=== PATIENT | female | born 1970 | race Caucasian/White ===

== ENCOUNTER 2022-10-25 14:09 | Emergency (ER) | payer SELFPAY ==
[2022-10-25] MEDS ORDERED: Sodium Chloride 0.9% 10 ML Syringe FLUSH PRN (14:35)
[2022-10-25 14:55] LABS: ESTIMATED GFR 60 mL/min (>60)
[2022-10-25] MEDS ORDERED: Sodium Chloride 0.9% 1,000 ML IV SCH (15:00)
[2022-10-25] MEDS ORDERED: Potassium Chloride 20 MEQ Tab.ER PO STA (15:06)
[2022-10-25] MEDS ORDERED: Ondansetron 4 MG/2 ML SDV IVPUSH ONE (15:06)
[2022-10-25 15:37] LABS: CORONAVIRUS COVID-19 NAA NEGATIVE (NEGATIVE)
[2022-10-25] MEDS ORDERED: Iopamidol 755 Mg/ML 75 ML Bottle IV ONE (16:20)
== END 2022-10-25 17:20 | disposition home or self-care (01) ==
LOC: FB.ED 14:09
DX: K52.9 Noninfective gastroenteritis and colitis, unspecified (principal); K76.0 Fatty (change of) liver, not elsewhere classified; E04.1 Nontoxic single thyroid nodule; R91.1 Solitary pulmonary nodule; E11.9 Type 2 diabetes mellitus without complications; Z72.0 Tobacco use; Z20.822 Contact with and (suspected) exposure to COVID-19
CPT/HCPCS: 0241U; 36415; 71045; 71275; 80053; 82947; 83605; 83880; 84484; 85025; 85379; 85610; 85730; 87040; 93005; 93010; 96361; 96374; 99283; 99285-25; A9270-GY; J2405; J7030; Q9967

== ENCOUNTER 2023-01-29 22:52 | Emergency (ER) | payer SELFPAY ==
[2023-01-29] MEDS ORDERED: Sodium Chloride 0.9% 1,000 ML IV ONE (23:07)
[2023-01-29] MEDS ORDERED: Ondansetron 4 MG/2 ML SDV IVPUSH ONE (23:07)
[2023-01-29] MEDS ORDERED: Sodium Chloride 0.9% 10 ML Syringe FLUSH PRN (23:07)
[2023-01-29] MEDS ORDERED: HYDROmorphone 2 MG/ML SDV IVPUSH ONE (23:07)
[2023-01-29 23:16] LABS: HEMATOCRIT 45.2 % (34.2-48.2); HEMOGLOBIN 14.8 g/dL (11.4-15.5); MEAN CORPUSCULAR HEMOGLOBIN 27.9 pg (23.9-33.9); MEAN CORPUSCULAR HGB CONC 32.7 g/dL (31.9-34.8); MEAN CORPUSCULAR VOLUME 85.2 fL (76.7-100.5); PLATELET COUNT,PLT 494 x10(3)uL (151-488); RED BLOOD CELL COUNT 5.31 x10(6)uL (3.60-5.20); RED CELL DISTRIBUTION WIDTH 14.7 % (12.3-16.5); WHITE BLOOD CELL COUNT,WBC 23.3 x10-3/uL (3.0-10.3)
[2023-01-29 23:21] LABS: BLOOD UREA NITROGEN,BUN 16 mg/dL (7-18); BUN/CREATININE RATIO 13.3 (9-20); CALCIUM 9.9 mg/dL (8.6-10.2); CARBON DIOXIDE,CO2 22 mmol/L (21-32); CHLORIDE,CL 99 mmol/L (100-110); CREATININE 1.2 mg/dL (0.55-1.02); ESTIMATED GFR 54 mL/min (>60); GLUCOSE RANDOM 229 mg/dL (80-116); POTASSIUM,K 3.5 mmol/L (3.5-5.3); SODIUM,NA 137 mmol/L (135-145)
[2023-01-29 23:23] LABS: EST CRCL DRUG DOSING (CG) 44.33 mL/min
[2023-01-29 23:26] LABS: A/G RATIO 0.8; ALANINE AMINOTRANSFERASE,ALT 43 U/L (12-36); ALBUMIN 3.9 g/dL (3.5-5.2); ALKALINE PHOSPHATASE 122 IU/L (56-112); ASPARTATE AMNIOTRANSFERASE,AST 32 IU/L (5-25); BILIRUBIN TOTAL 0.6 mg/dL (0.1-1.3); PROTEIN TOTAL,TP 9.1 g/dL (6.0-8.0)
[2023-01-29 23:31] LABS: C-REACTIVE PROTEIN 3.9 mg/dL (0.5-0.9)
[2023-01-29] MEDS ORDERED: Iopamidol 755 Mg/ML 100 ML Bottle IV ONE (23:32)
[2023-01-29 23:34] LABS: BAND PERCENT MAN 1 % (0-6); LYMPHOCYTES PERCENT MAN 32 % (13-37); METAMYELOCYTE PERCENT MAN 1 % (0-0); MONOCYTES PERCENT MAN 10 % (4-12); SEG NEUTROPHILS PERCENT MAN 56 % (46-82)
[2023-01-30] MEDS ORDERED: Pantoprazole 40 MG Vial IVPUSH ONE (00:04)
[2023-01-30] MEDS ORDERED: cefOXitin 2 GM Vial IVPUSH ONE (00:17)
[2023-01-30] MEDS ORDERED: Sodium Chloride 0.9% 1,000 ML IV ONE (00:18)
[2023-01-30] MEDS ORDERED: Sodium Chloride 0.9% 1,000 ML IV SCH (00:30)
[2023-01-30] MEDS ORDERED: fentaNYL 100 MCG/2 ML SDV IVPUSH ONE (00:40)
== END 2023-01-30 01:06 ==
LOC: FB.ED 22:52
DX: K63.1 Perforation of intestine (nontraumatic) (principal); E86.0 Dehydration; I10 Essential (primary) hypertension; E11.9 Type 2 diabetes mellitus without complications; E66.9 Obesity, unspecified; Z68.42 Body mass index [BMI] 45.0-49.9, adult; Z72.0 Tobacco use; Z79.899 Other long term (current) drug therapy
CPT/HCPCS: 36415; 74177; 80053; 83605; 83690; 85025; 86140; 93005; 96361; 96374; 96375; 99285; C9113; J0694; J1170; J2405; J3010; J7030; Q9967

== ENCOUNTER 2023-03-24 15:50 | Emergency (ER) | payer SELFPAY ==
[2023-03-24] MEDS: Ketorolac 30 MG/ML SDV IM ONE ×3 (15:58→16:18)
[2023-03-24] MEDS ORDERED: Orphenadrine 60 MG/2 ML Inj IM ONE (16:13)
[2023-03-24] MEDS ORDERED: tiZANidine 4 MG Tab PO ONE (16:56)
== END 2023-03-24 17:26 | disposition home or self-care (01) ==
LOC: FB.ED 15:50
DX: M62.830 Muscle spasm of back (principal); I10 Essential (primary) hypertension; E11.9 Type 2 diabetes mellitus without complications; E66.9 Obesity, unspecified
CPT/HCPCS: 96372; 99283; A9270; J1885; J2360

== ENCOUNTER 2023-03-28 16:33 | Emergency (ER) | payer SELFPAY ==
[2023-03-28] MEDS ORDERED: Ketorolac 30 MG/ML SDV IM ONE (16:51)
[2023-03-28] MEDS ORDERED: Acetaminophen/HYDROcodone 325-5 MG Tab PO ONE (16:51)
[2023-03-28] MEDS ORDERED: Cyclobenzaprine 10 MG Tab PO ONE (16:51)
[2023-03-28] MEDS ORDERED: Lidocaine 4% 1 each Patch TOP PRN (17:29)
== END 2023-03-28 18:05 | disposition home or self-care (01) ==
LOC: FB.ED 16:33
DX: M54.50 Low back pain, unspecified (principal); I10 Essential (primary) hypertension; E11.9 Type 2 diabetes mellitus without complications; E66.9 Obesity, unspecified; F17.210 Nicotine dependence, cigarettes, uncomplicated; Z68.42 Body mass index [BMI] 45.0-49.9, adult
CPT/HCPCS: 96372; 99283; A9270; J1885

== ENCOUNTER 2023-04-21 09:25 | Emergency (ER) | payer SELFPAY ==
[~2023-04-21 09:25] MED LIST: Sodium Chloride 0.9% 10 ML Syringe FLUSH PRN
[2023-04-21 09:46] LABS: BASOPHILS ABSOLUTE AUTO 0.1 x10-3/uL (0.0-0.1); EOSINOPHILS ABSOLUTE AUTO 0.2 x10-3/uL (0.0-0.8); EOSINOPHILS PERCENT AUTO 1.6 % (0.6-8.1); HEMATOCRIT 33.8 % (34.2-48.2); HEMOGLOBIN 10.9 g/dL (11.4-15.5); LYMPHOCYTES ABSOLUTE AUTO 2.2 x10-3/uL (1.0-4.4); LYMPHOCYTES PERCENT AUTO 16.1 % (18.4-52.1); MEAN CORPUSCULAR HEMOGLOBIN 26.4 pg (23.9-33.9); MEAN CORPUSCULAR HGB CONC 32.4 g/dL (31.9-34.8); MEAN CORPUSCULAR VOLUME 81.7 fL (76.7-100.5); MEAN PLATELET VOLUME 8.2 fL (7.1-12.4); MONOCYTES ABSOLUTE AUTO 0.9 x10-3/uL (0.3-1.0); MONOCYTES PERCENT AUTO 6.7 % (4.4-15.7); NEUTROPHILS ABSOLUTE AUTO 10.3 x10-3/uL (1.5-6.3); NEUTROPHILS PERCENT AUTO 74.6 % (30.8-76.2); PLATELET COUNT,PLT 477 x10(3)uL (151-488); RED BLOOD CELL COUNT 4.13 x10(6)uL (3.60-5.20); RED CELL DISTRIBUTION WIDTH 15.9 % (12.3-16.5); WHITE BLOOD CELL COUNT,WBC 13.8 x10-3/uL (3.0-10.3)
[2023-04-21 09:57] LABS: A/G RATIO 0.5; ALANINE AMINOTRANSFERASE,ALT 32 U/L (12-36); ALBUMIN 2.6 g/dL (3.5-5.2); ALKALINE PHOSPHATASE 189 IU/L (56-112); ASPARTATE AMNIOTRANSFERASE,AST 73 IU/L (5-25); BILIRUBIN TOTAL 0.3 mg/dL (0.1-1.3); BLOOD UREA NITROGEN,BUN 23 mg/dL (7-18); BUN/CREATININE RATIO 28.8 (9-20); CARBON DIOXIDE,CO2 29 mmol/L (21-32); CHLORIDE,CL 100 mmol/L (100-110); CREATININE 0.8 mg/dL (0.55-1.02); ESTIMATED GFR 88 mL/min (>60); GLUCOSE RANDOM 128 mg/dL (80-116); PROTEIN TOTAL,TP 7.6 g/dL (6.0-8.0); SODIUM,NA 140 mmol/L (135-145)
[2023-04-21 09:59] LABS: INR 1.06 (1.00-1.24); PROTHROMBIN TIME 10.9 sec (9.0-11.1)
[2023-04-21 10:00] LABS: POTASSIUM,K 2.8 mmol/L (3.5-5.3)
[2023-04-21] MEDS ORDERED: Morphine 4 MG/ML VIAL IVPUSH ONE (10:14)
[2023-04-21] MEDS ORDERED: Ketorolac 30 MG/ML SDV IVPUSH ONE (12:50)
[2023-04-21] MEDS ORDERED: Potassium Chloride 20 MEQ Tab.ER PO ONE (12:51)
[2023-04-21] MEDS ORDERED: Cyclobenzaprine 10 MG Tab PO ONE (12:54)
[2023-04-21] MEDS ORDERED: Cyclobenzaprine 10 MG Tab PO SCH (14:00)
[2023-04-23 13:13] LABS: LYME TOTAL ANTIBODY CIA Negative (Negative)
== END 2023-04-21 15:50 | disposition home or self-care (01) ==
LOC: FB.ED 09:25
DX: G51.0 Bell's palsy (principal); I10 Essential (primary) hypertension; E11.9 Type 2 diabetes mellitus without complications; E66.9 Obesity, unspecified; Z68.39 Body mass index [BMI] 39.0-39.9, adult; Z79.899 Other long term (current) drug therapy
CPT/HCPCS: 36415; 70450; 70551; 71045; 72100; 73521; 80053; 82947; 84484; 85025; 85610; 85730; 86618; 93005; 96374; 96375; 99284; A9270; J1885; J2270

== ENCOUNTER 2023-04-25 10:22 | Emergency (ER) | payer SELFPAY ==
[2023-04-25] MEDS ORDERED: Sodium Chloride 0.9% 10 ML Syringe FLUSH PRN (10:39)
[2023-04-25] MEDS ORDERED: Morphine 4 MG/ML VIAL IVPUSH ONE (11:06)
[2023-04-25] MEDS ORDERED: Ketorolac 30 MG/ML SDV IVPUSH ONE (11:06)
[2023-04-25 11:18] LABS: HEMATOCRIT 34.9 % (34.2-48.2); HEMOGLOBIN 11.4 g/dL (11.4-15.5); MEAN CORPUSCULAR HEMOGLOBIN 26.6 pg (23.9-33.9); MEAN CORPUSCULAR HGB CONC 32.7 g/dL (31.9-34.8); MEAN CORPUSCULAR VOLUME 81.3 fL (76.7-100.5); PLATELET COUNT,PLT 381 x10(3)uL (151-488); RED BLOOD CELL COUNT 4.29 x10(6)uL (3.60-5.20); RED CELL DISTRIBUTION WIDTH 15.7 % (12.3-16.5); WHITE BLOOD CELL COUNT,WBC 15.2 x10-3/uL (3.0-10.3)
[2023-04-25 11:19] LABS: BLOOD UREA NITROGEN,BUN 26 mg/dL (7-18); BUN/CREATININE RATIO 23.6 (9-20); CALCIUM 11.5 mg/dL (8.6-10.2); CARBON DIOXIDE,CO2 27 mmol/L (21-32); CHLORIDE,CL 98 mmol/L (100-110); CREATININE 1.1 mg/dL (0.55-1.02); EST CRCL DRUG DOSING (CG) 49.42 mL/min; ESTIMATED GFR 60 mL/min (>60); GLUCOSE RANDOM 99 mg/dL (80-116); POTASSIUM,K 3.2 mmol/L (3.5-5.3); SODIUM,NA 138 mmol/L (135-145)
[2023-04-25 11:25] LABS: A/G RATIO 0.6; ALANINE AMINOTRANSFERASE,ALT 41 U/L (12-36); ALBUMIN 2.9 g/dL (3.5-5.2); ALKALINE PHOSPHATASE 170 IU/L (56-112); ASPARTATE AMNIOTRANSFERASE,AST 83 IU/L (5-25); BILIRUBIN TOTAL 0.4 mg/dL (0.1-1.3); PROTEIN TOTAL,TP 7.6 g/dL (6.0-8.0)
[2023-04-25 11:35] LABS: BAND PERCENT MAN 1 % (0-6); LYMPHOCYTES PERCENT MAN 16 % (13-37); MONOCYTES PERCENT MAN 4 % (4-12); SEG NEUTROPHILS PERCENT MAN 79 % (46-82)
[2023-04-25 11:58] LABS: D-DIMER QUANTITATIVE 1.82 mg/LFEU (0.0-0.59)
[2023-04-25] MEDS ORDERED: Iopamidol 755 Mg/ML 100 ML Bottle IV SCH (12:00)
[2023-04-25 12:02] LABS: INR 1.08 (1.00-1.24); PROTHROMBIN TIME 11.1 sec (9.0-11.1)
[2023-04-25 12:03] LABS: PTT,PARTIAL THROMBOPLSTIN TIME 21.6 SECONDS (24.4-33.2)
[2023-04-25] MEDS ORDERED: Potassium Chloride 20 MEQ Tab.ER PO ONE (14:06)
[2023-04-25] MEDS ORDERED: Sodium Chloride 0.9% 1,000 ML IV SCH (14:15)
== END 2023-04-25 17:00 | disposition home or self-care (01) ==
LOC: FB.ED 10:22
DX: G89.3 Neoplasm related pain (acute) (chronic) (principal); C80.1 Malignant (primary) neoplasm, unspecified; C79.51 Secondary malignant neoplasm of bone; C78.7 Secondary malignant neoplasm of liver and intrahepatic bile duct; I10 Essential (primary) hypertension; E11.9 Type 2 diabetes mellitus without complications; E66.9 Obesity, unspecified; Z68.41 Body mass index [BMI] 40.0-44.9, adult; Z87.891 Personal history of nicotine dependence
CPT/HCPCS: 36415; 71260; 72128; 72131; 74177; 80053; 82947; 83735; 84484; 85025; 85379; 85610; 85730; 93005; 96361; 96374; 96375; 99284; A9270; J1885; J2270; J3490; J7030; Q9967

== ENCOUNTER 2023-04-26 21:44 | Emergency (ER) | payer SELFPAY ==
[2023-04-26] MEDS: Morphine 4 MG/ML VIAL IVPUSH ONE (22:26)
[2023-04-26 22:27] LABS: HEMATOCRIT 35.4 % (34.2-48.2); HEMOGLOBIN 11.6 g/dL (11.4-15.5); MEAN CORPUSCULAR HEMOGLOBIN 26.4 pg (23.9-33.9); MEAN CORPUSCULAR HGB CONC 32.8 g/dL (31.9-34.8); MEAN CORPUSCULAR VOLUME 80.4 fL (76.7-100.5); PLATELET COUNT,PLT 380 x10(3)uL (151-488); RED CELL DISTRIBUTION WIDTH 15.2 % (12.3-16.5); WHITE BLOOD CELL COUNT,WBC 16.3 x10-3/uL (3.0-10.3)
[2023-04-26] MEDS: Sodium Chloride 0.9% 10 ML Syringe FLUSH PRN (22:27)
[2023-04-26] MEDS: Ondansetron 4 MG/2 ML SDV IVPUSH ONE (22:27)
[2023-04-26] MEDS ORDERED: Sodium Chloride 0.9% 1,000 ML IV ONE (22:30)
[2023-04-26 22:36] LABS: BLOOD UREA NITROGEN,BUN 20 mg/dL (7-18); BUN/CREATININE RATIO 28.6 (9-20); CALCIUM 11.3 mg/dL (8.6-10.2); CARBON DIOXIDE,CO2 27 mmol/L (21-32); CHLORIDE,CL 98 mmol/L (100-110); CREATININE 0.7 mg/dL (0.55-1.02); ESTIMATED GFR 103 mL/min (>60); GLUCOSE RANDOM 111 mg/dL (80-116); POTASSIUM,K 3.1 mmol/L (3.5-5.3); SODIUM,NA 139 mmol/L (135-145)
[2023-04-26 22:42] LABS: A/G RATIO 0.7; ALANINE AMINOTRANSFERASE,ALT 42 U/L (12-36); ALKALINE PHOSPHATASE 179 IU/L (56-112); ASPARTATE AMNIOTRANSFERASE,AST 72 IU/L (5-25); BILIRUBIN TOTAL 0.5 mg/dL (0.1-1.3); CREATINE KINASE,CK 62 IU/L (60-160); PROTEIN TOTAL,TP 7.6 g/dL (6.0-8.0)
[2023-04-26 22:48] LABS: BAND PERCENT MAN 7 % (0-6); EOSINOPHILS PERCENT MAN 1 % (0-5); LACTIC ACID 2.8 mmol/L (0.4-2.0); LYMPHOCYTES PERCENT MAN 17 % (13-37); MONOCYTES PERCENT MAN 8 % (4-12); SEG NEUTROPHILS PERCENT MAN 67 % (46-82)
[2023-04-26] MEDS: cefTRIAXone 2 GM Vial IVPUSH ONE (23:12)
[2023-04-26 23:32] LABS: BILIRUBIN,URINE NEGATIVE (NEGATIVE); GLUCOSE,URINE NORMAL (NORMAL); KETONES,URINE 15 mg/dL (NEGATIVE); LEUKOCYTE ESTERASE,URINE NEGATIVE (NEGATIVE); NITRITE,URINE NEGATIVE (NEGATIVE); OCCULT BLOOD,URINE NEGATIVE (NEGATIVE); PROTEIN,URINE NEGATIVE (NEGATIVE); UROBILINOGEN,URINE NORMAL (NEGATIVE)
[2023-04-26 23:37] LABS: APPEARANCE,URINE SLIGHTLY CLOUDY (CLEAR); BACTERIA,URINE FEW (NS); COLOR,URINE YELLOW (YELLOW); MUCUS,URINE FEW (NS); RBC,URINE 0-5 (0-5); SQUAMOUS EPITHELIAL CELLS,UR FEW (NS,R,O); WBC,URINE 0-5 (0-5)
[2023-04-26] MEDS: Magnesium Sulfate/Water 2 GM in Premix Bag 1 BAG IV ONE (23:38)
[2023-04-27] MEDS: VANCOmycin 1.5 GM/300 ML 1.5 GM in Premix Bag 1 BAG IV ONE (00:06)
[2023-04-27 00:41] LABS: INFLUENZA A NAA NEGATIVE (NEGATIVE); INFLUENZA B NAA NEGATIVE (NEGATIVE)
[2023-04-27 00:43] LABS: CORONAVIRUS COVID-19 NAA NEGATIVE (NEGATIVE)
[2023-04-27] MEDS: Potassium Chloride 20 MEQ Tab.ER PO ONE (00:55)
[2023-04-27] MEDS: Morphine 4 MG/ML VIAL IVPUSH ONE (01:18)
== END 2023-04-27 01:25 ==
LOC: FB.ED 21:44
DX: A41.9 Sepsis, unspecified organism (principal); S22.43XA Multiple fractures of ribs, bilateral, initial encounter for closed fracture; S32.009A Unspecified fracture of unspecified lumbar vertebra, initial encounter for closed fracture; S22.009A Unspecified fracture of unspecified thoracic vertebra, initial encounter for closed fracture; C78.7 Secondary malignant neoplasm of liver and intrahepatic bile duct; E87.6 Hypokalemia; E83.42 Hypomagnesemia; I10 Essential (primary) hypertension; E11.9 Type 2 diabetes mellitus without complications; E66.9 Obesity, unspecified; Z68.30 Body mass index [BMI] 30.0-30.9, adult; Z20.822 Contact with and (suspected) exposure to COVID-19; W01.0XXA Fall on same level from slipping, tripping and stumbling without subsequent striking against object, initial encounter
CPT/HCPCS: 0240U; 36415; 71101-LT; 73030-LT; 73521; 80053; 81001; 82105; 82550; 83605; 83735; 84484; 85025; 86301; 93005; 93010; 96365; 96375; 96376; 99285; 99285-25; A9270-GY; J0696; J2270; J2405; J3370; J3475; J3490